=== PATIENT | female | born 1995 ===

== ENCOUNTER 2024-06-30 20:20 | Emergency (ER) | payer MEDICAID ==
[2024-06-30 20:52] LABS: BASOPHILS ABSOLUTE AUTO 0.03 K/uL (0.00-0.10); BASOPHILS PERCENT AUTO 0.3 % (0.1-1.3); EOSINOPHILS ABSOLUTE AUTO 0.05 K/uL (0.00-0.40); EOSINOPHILS PERCENT AUTO 0.5 % (0.0-5.4); HEMATOCRIT 38.8 % (34.3-46.0); HEMOGLOBIN 13.1 g/dL (11.2-15.5); IMMATURE GRAN PERCENT AUTO 0.2 % (0.0-0.7); LYMPHOCYTES ABSOLUTE AUTO 1.73 K/uL (0.8-3.3); LYMPHOCYTES PERCENT AUTO 18.5 % (11.4-47.7); MEAN CORPUSCULAR HGB CONC 33.8 g/dL (31.6-35.5); MEAN CORPUSCULAR VOLUME 88.8 fL (81.4-99.0); MONOCYTES PERCENT AUTO 4.3 % (3.3-12.6); NEUTROPHILS ABSOLUTE AUTO 7.14 K/uL (1.0-7.6); NEUTROPHILS PERCENT AUTO 76.2 % (40.0-78.1); PLATELET COUNT,PLT 232 K/uL (130-375); RED BLOOD CELL COUNT 4.37 M/uL (3.77-5.24); WHITE BLOOD CELL COUNT,WBC 9.4 K/uL (3.2-11.0)
[2024-06-30 20:53] LABS: IMMATURE GRAN ABSOLUTE AUTO 0.02 K/uL (0.00-0.23)
[2024-06-30] MEDS: Ondansetron 4 MG/2 ML SDV IVPUSH ONE (21:02)
[2024-06-30] MEDS: Sodium Chloride 0.9% 10 ML Syringe FLUSH PRN ×2 (21:02→22:28)
[2024-06-30] MEDS: fentaNYL 100 MCG/2 ML SDV IVPUSH ONE (21:02)
[2024-06-30 21:14] LABS: A/G RATIO 0.9 (1.2-2.2); ALANINE AMINOTRANSFERASE,ALT 28 U/L (12-78); ALBUMIN 3.9 g/dL (3.4-5.0); ALKALINE PHOSPHATASE 154 U/L (46-116); ASPARTATE AMNIOTRANSFERASE,AST 24 U/L (15-37); BILIRUBIN TOTAL 0.3 mg/dL (0.2-1.0); BLOOD UREA NITROGEN,BUN 6 mg/dL (7-18); CALCIUM 8.8 mg/dL (8.5-10.1); CARBON DIOXIDE,CO2 21 mmol/L (21-32); CHLORIDE,CL 101 mmol/L (100-108); CREATININE 0.8 mg/dL (0.6-1.0); EST CRCL DRUG DOSING (CG) 111.37 mL/min; ESTIMATED GFR 104 mL/min (>60); GLUCOSE RANDOM 366 mg/dL (74-106); POTASSIUM,K 3.5 mmol/L (3.6-5.2); PROTEIN TOTAL,TP 8.3 g/dL (6.4-8.2); SODIUM,NA 139 mmol/L (140-148)
[2024-06-30 21:18] LABS: ANION GAP 20.5 mmol/L (5.0-14.0)
[2024-06-30] MEDS: Sodium Chloride 0.9% 100 ML IV SCH (22:28)
[2024-06-30] MEDS: Iopamidol 612 MG/ML 100 ML Bottle IV SCH (22:28)
== END 2024-06-30 23:26 | disposition home or self-care (01) ==
LOC: JP.ED 20:20
DX: S22.43XA Multiple fractures of ribs, bilateral, initial encounter for closed fracture (principal); S27.0XXA Traumatic pneumothorax, initial encounter; S30.1XXA Contusion of abdominal wall, initial encounter; Y04.2XXA Assault by strike against or bumped into by another person, initial encounter
CPT/HCPCS: 36415; 70450; 70486; 71260; 72125; 74177; 76377; 80053; 83605; 85025; 96374; 96375; 99284; 99285-25; J2405; J3010; Q9967